=== PATIENT | male | born 1950 | race Caucasian/White ===

== ENCOUNTER → 2022-08-13 13:58 | Outpatient (BNVA) | payer MEDICARE, OTHER, SELFPAY | PROVIDERS: Visit Provider Neurological Surgery | DX: M54.12 Radiculopathy, cervical region (principal); M48.02 Spinal stenosis, cervical region | CPT/HCPCS: 99202 ==

== ENCOUNTER 2022-12-03 05:54 | Day surgery (SDC) | payer MEDICARE, OTHER, SELFPAY ==
[2022-11-19 13:44] VITALS: BMI 30.7
--- NOTE | 2022-12-02 08:40 | HO.ANESPROP2 ---
Documented by User: Aparna Park NP 12/02/22 08:50 HPI - Anesthesia Eval Consult details Narrative: 72yo M for Left C6 Laminectomy Decompression (Foraminotomy) Medically cleared Patient not seen in [facility] Active Problems Active Problems: All Active Problems (Updated 11/19/22 @ 13:33 by Akua Lomeli RN) Neuroforaminal stenosis of cervical spine (Acute) Cervical radiculopathy at C6 (Acute) Past Medical History Medical History Colon cancer Prostate cancer Type 2 diabetes mellitus HTN (hypertension) Peripheral neuropathy AAA (abdominal aortic aneurysm) Coronary arteriosclerosis Surgical History Surgical History Hx of fusion of cervical spine Hx of excision of mass History of colon resection H/O colonoscopy Social History Social History Are you a primary day care assistant to a significant other at home: No Do you presently have visiting nurse or other home services: No Patient Tobacco Use Status: Former Tobacco user Quit Date: age 32 Tobacco use type: Cigarette Use of substances other than those prescribed or required for medical reasons: No Have you been hit, kicked, punched, or otherwise hurt by someone within the past year? If so, by whom?: No Are you DNR?: No Advance Directives: No (states is primary contact) Advance Directives Information Provided: Yes (brochure mailed) Advance Directives on File: No Recently lost weight without trying: No Eating poorly because of decreased appetite: No Nutrition Risks: No Nutritional Risk Poor oral hygiene: No Meds Allergies Allergy/AdvReac Type Severity Reaction Status Date / Time No Known Allergies Allergy Verified 12/03/22 06:22 Home Medications Medication Instructions Recorded Confirmed Last Taken Type amlodipine 10 mg tablet 10 mg PO DAILY 11/19/22 11/19/22 12/03/22 05:00 History clonidine HCl 0.1 mg tablet 0.1 mg PO TID 11/19/22 11/19/22 12/03/22 05:00 History insulin glargine 100 unit/mL (3 10 unit subcut BEDTIME 11/19/22 11/19/22 Unknown History mL) subcutaneous pen (Lantus Solostar U-100 Insulin) labetalol 200 mg tablet 200 mg PO BID 11/19/22 11/19/22 12/03/22 05:00 History metformin 500 mg tablet 1,000 mg PO BID 11/19/22 11/19/22 Unknown History tamsulosin 0.4 mg capsule 0.4 mg PO DAILY 11/19/22 11/19/22 Unknown History Exam Exam Date and Time: December 02, 2022 0840 Height,Weight and Vital Signs: Height 6 ft 1 in Weight 105.687 kg Pertinent Lab Results Pertinent Lab Results: 09/2022 BMP BUN/Creat elevated A1C 8.5 CBC WNL Narrative Narrative: EKG 09/2022 SB @ 58 Nuc Stress 2021 1. Study negative for ischemia 2. Nml LV size with estimated EF 48% 3. Perfusion: No perfusion defects observed. 4. Wall motion: No abnormal wall motion observed. Assessment and Plan Assessment Anesthesia Assessment: Chart Reviewed Documented by User: Blanca Whaley MD 12/03/22 07:27 [facility] Past Medical History Medical History Colon cancer Prostate cancer Type 2 diabetes mellitus HTN (hypertension) Peripheral neuropathy AAA (abdominal aortic aneurysm) Coronary arteriosclerosis Family History Family history of problems with anesthesia: No Surgical History Surgical History Hx of fusion of cervical spine Hx of excision of mass History of colon resection H/O colonoscopy History of Problems with Anesthesia: No Social History Social History Are you a primary day care assistant to a significant other at home: No Do you presently have visiting nurse or other home services: No Patient Tobacco Use Status: Former Tobacco user Quit Date: age 32 Tobacco use type: Cigarette Use of substances other than those prescribed or required for medical reasons: No Have you been hit, kicked, punched, or otherwise hurt by someone within the past year? If so, by whom?: No Are you DNR?: No Advance Directives: No (states is primary contact) Advance Directives Information Provided: Yes (brochure mailed) Advance Directives on File: No Recently lost weight without trying: No Eating poorly because of decreased appetite: No Nutrition Risks: No Nutritional Risk Poor oral hygiene: No Meds Allergies Allergy/AdvReac Type Severity Reaction Status Date / Time No Known Allergies Allergy Verified 12/03/22 06:22 Home Medications Medication Instructions Recorded Confirmed Last Taken Type amlodipine 10 mg tablet 10 mg PO DAILY 11/19/22 11/19/22 12/03/22 05:00 History clonidine HCl 0.1 mg tablet 0.1 mg PO TID 11/19/22 11/19/22 12/03/22 05:00 History insulin glargine 100 unit/mL (3 10 unit subcut BEDTIME 11/19/22 11/19/22 Unknown History mL) subcutaneous pen (Lantus Solostar U-100 Insulin) labetalol 200 mg tablet 200 mg PO BID 11/19/22 11/19/22 12/03/22 05:00 History metformin 500 mg tablet 1,000 mg PO BID 11/19/22 11/19/22 Unknown History tamsulosin 0.4 mg capsule 0.4 mg PO DAILY 11/19/22 11/19/22 Unknown History Exam Airway Mallampati Class: III TM Dist: >3cm Neck ROM: Limited Heart: rrr Lungs: cta Assessment and Plan Assessment Anesthesia Assessment: Anesthesia Plan Discussed Final Anesthetic Review Family History of Problems with Anesthesia: No History of Problems with Anesthesia: No NPO: Yes ASA Class: III Final Preanesthetic Review: No Changes in Pt Med Stat, Meds/Allgs Chart Reviewed, Consent Obtained/Reviewed and Anes Risks/Benef Reviewed Patient Risk: Intermediate Procedure Risk: Intermediate Anesthetic Plan Anesthetic Plan: GA (left upper extremity weakness and tingling and numbness ) Disposition: Standard PACU
[2022-12-03] VITALS (10 sets, daily range): BP systolic 146–170; BP diastolic 56–85; PULSE 48–62; RESP 10–18; TEMP 36–36.2; O2SAT 95–100
--- NOTE | ~2022-12-03 | FL_ITS ---
EXAMINATION: XR FLUOROSCOPY WITH IMAGES CLINICAL INFORMATION: C6 laminectomy decompression, left. COMPARISON: None available. TECHNIQUE: Fluoroscopy Supervised By: Dr. Prashanth Pickard. Fluoroscopy Time: Less than 0.1 minute. Cumulative Dose: 1.12 mGy. DAP: 0.242 Gycm2. Images: 1. FINDINGS: Single lateral intraoperative image demonstrates anterior fusion hardware with plate and screws in the cervical spine. There is marker placement projecting over the posterior elements at the most inferior postsurgical level. FL/FL guidance in OR IMPRESSION: Fluoroscopy guidance for cervical spine surgery.
[2022-12-03] MEDS: methocarbamoL 750 MG TABLET PO (06:23)
[2022-12-03] MEDS: Gabapentin 300 MG CAPSULE PO (06:23)
[2022-12-03] MEDS: Lactated Ringers 1,000 ML 100 ML IVCONT (06:30)
[2022-12-03 06:41] LABS: Glucose, Whole Blood 148 mg/dL (60-115)
--- NOTE | 2022-12-03 07:03 | MHC.SHP ---
Pre-Procedural Eval Section A Date of Service: 12/03/22 Section B Chief Complaint: Radiculopathy, cervical region,Spinal stenosis, Allergies: Allergies Allergy/AdvReac Type Severity Reaction Status Date / Time No Known Allergies Allergy Verified 12/03/22 06:22 Review of Systems Sugical H&P ROS: Negative: Constitution, Cardiovascular, Respiratory, Neurological, Psychiatric, Hem-Onc, Allergic/Immunologic, Gastrointestinal, Genitourinary, Musculoskeletal, Integumentary, Endocrine and Eyes/Ears/Nose/Throat Exam Surgical H&P Exam: Not Evaluated: HEENT, Not Evaluated: Heart, Not Evaluated: Lungs, Not Evaluated: Extremities, Not Evaluated: Abdomen, Not Evaluated: Skin and Not Evaluated: Neurological Plan I have reviewed the history and physical and performed a pertinent physical examination on my patient. No changes have occurred unless specified. Plan remains the same. C6 laminectomy Time Spent With Patient Time: Total time managing care of this patient today __10__ minutes.
--- NOTE | 2022-12-03 09:12 | PM.DS ---
DS: Providers Provider Date of Service: 12/03/22 Primary care physician: Kirt Barcenas MD DS: Diagnosis Discharge Diagnosis (1) S/P laminectomy: Status: Acute DS: Summary Time Spent with Patient Time attestation: Total time managing care of this patient today ____ minutes. Discharge coordination time: Less than 30 minutes Quality: Safe Use of Opioids Does Pt have an Active Cancer Diagnosis on the Problem List?: No Quality: Stroke Does the patient have a stroke diagnosis?: No Physical Exam Vital Signs: Vital Signs: Last Vital Signs Temp 97.1 F 12/03/22 06:31 Pulse 48 L 12/03/22 06:31 Resp 16 12/03/22 06:31 BP 170/85 H 12/03/22 06:31 Pulse Ox 95 12/03/22 06:31 O2 Del Method Room Air 12/03/22 06:31 BMI result Body Mass Index 30.7 DS: Data Data Completed and Pending Labs on day of discharge: Laboratory Results - last 24 hr 12/03/22 12/03/22 06:36 07:20 POC Glucose 148 H Blood Type O Negative Antibody Screen NEGATIVE Discharge Plan Discharge Patient Disposition: Home, Self-Care Referrals: Kirt Barcenas MD [Primary Care Provider] - 1 Week Discharge Medications: New sulfamethoxazole-trimethoprim [Bactrim DS] 800-160 mg tablet 1 tab PO BID 2 Days Qty: 4 0RF oxycodone 5 mg tablet 5 mg PO Q6-8H PRN (Reason: moderate-severe pain) Qty: 20 0RF Rx Instructions: Partial Fill upon patient request. acetaminophen 500 mg tablet 1,000 mg PO Q8H PRN (Reason: mild-moderate pain) Qty: 42 0RF docusate sodium 100 mg capsule 100 mg PO BID PRN (Reason: constipation) Qty: 20 0RF Continued metformin 500 mg tablet 1,000 mg PO BID clonidine HCl 0.1 mg tablet 0.1 mg PO TID labetalol 200 mg tablet 200 mg PO BID tamsulosin 0.4 mg capsule 0.4 mg PO DAILY amlodipine 10 mg tablet 10 mg PO DAILY insulin glargine [Lantus Solostar U-100 Insulin] 100 unit/mL (3 mL) insulin pen 10 unit subcut BEDTIME Discharge Orders: Discharge Order (Routine); Ordered 12/03/22 Ordered By: Jose Luis Croft Diet: Advance to usual diet Activity on Discharge: As tolerated Activity Restrictions/Additional Instructions: After your spinal surgery we ask you to observe the following restrictions/guidelines: Activity: It is normal to feel some discomfort as you increase your activity, but that will improve with time. We ask you avoid heavy lifting or acitivities that cause pain. As a general rule, 8lbs is a safe limit for lifting right after surgery. Walk as much as you feel comfortable but not to exhaustion. You will feel extra tired the first few days after surgery. Stay well hydrated. It is OK to walk up and down stairs You may return to driving when you are off narcotics (such as vicodin, oxycodone, dilaudid, etc), and you are back to normal functional capacity. If you have any concerns please check with office before driving. Return to work is specific to each patient and each surgery, so please speak with your doctor/PA at first follow up. Please bring paperwork such as FMLA at that time if you need it filled out. Medications: We will give you a short supply of narcotics after surgery (usually one weeks worth). If you need more please call the office but do not use more than prescribed. You will need to give our office 48 hours notice if you need narcotics refilled and we do not fill narcotics on weekends or evenings. If you are on a narcotic, it is a good idea to take a stool softener such as colace or senna to avoid constipation If you take blood thinner such as aspirin, Plavix, Coumadin, Effient, Eliquis etc for conditions such as Afib, DVT, Pulmonary embolus, coronary disease, stents etc please speak with your surgeon about specific details as to when you can resume these medications. You can resume NSAIDs on post op day 1 (eg: Motrin, Naproxen, etc). Follow up: Please call the office, , after surgery to arrange a 3 week follow up for wound check. Wound Care: You may remove your dressing on the first day after surgery. You may leave open to air. Please do not remove the steri strips underneath. they will fall off on their own in one week. IT IS NORMAL FOR THE WOUND TO OOZE OR BE BLOODY FOR A FEW DAYS AFTER SURGERY. IF THIS HAPPENS JUST PLACE NEW DRESSING OVER IT TO AVOID STAINING CLOTHES. You may shower on post op day # 1 We ask that you do not let the water soak the wound. If it does get wet, just towel dry lightly. Please do not scrub your incision or place any type of chemical/ointment on the wound. No tub baths, pools or jacuzzis for one month. If you have any leaking or redness from your wound, or fevers, please call the office.
--- NOTE | 2022-12-03 09:14 | P.OP_ITS ---
Operative Note Operative Note Date of Service: 12/03/22 Narrative: Preoperative Diagnosis: cervical radiculopathy, left-sided Operation: C6 laminotomy and foraminotomy with microscope Consent Informed Consent was obtained for this operation. I have explained the nature, purpose and benefits of the operation. I have discussed the risks and benefit of the operation including possible complications or adverse events with patient/family. Alternative(s) were discussed with the patient with their relative benefits and risks as well as the consequences of not accepting the operation were included in obtaining consent. Surgeon: SHANEKA COLON MD, PHD Procedure Assisted By: GEOVANI Lynch Description of Procedure This 72 year-old male suffering from left-sided cervical radiculopathy due to left C6 foraminal stenosis.The patient was offered a decompression of those nerv e roots. The procedure complications were explained. The patient was consented. The patient was brought to the operating room and endotracheally intubated. The patient was turned in prone position on the gel rolls. Prep and drape was done followed by timeout. a midcervical incision was made. Dissection was carried down the midline to avoid blood loss. The paravertebral muscles were released to expose the C5-C6 lamina in preparation for the foraminotomy. The microscope was brought in. A small C5-C6 laminotomy was done. The origin of the C6 nerve was identified. The inferior articular process of C5 was drilled down after which with a 1. Kerrison a foraminotomy was done to decompress the nerve root. A nerve hook could be easily passed over the nerve root a sign of adequate decompression. The physician logging assistant performed hemostasis and closed incision. Dermabond was used to approximate incision. All sponge needle counts were correct. Patient was extubated and transported in stable is to recovery room. Anesthesia: General Estimated Blood Loss (ml): Minimal Duration of Surgery: Under 60 Minutes Postoperative Plan: Discharge to home
[2022-12-03] MEDS: oxyCODONE HCl Immed Release 5 MG TABLET PO (10:01)
== END 2022-12-03 11:46 | disposition home or self-care (01) ==
PROVIDERS: PCP Internal Medicine Geriatric Medicine; Visit Provider Neurological Surgery
PROC: (CPT 63045; principal; 2022-12-03 07:30)
DX: M54.12 Radiculopathy, cervical region (principal); M48.02 Spinal stenosis, cervical region; Z98.1 Arthrodesis status; R20.0 Anesthesia of skin; M54.2 Cervicalgia; C61 Malignant neoplasm of prostate; I10 Essential (primary) hypertension; I71.40 Abdominal aortic aneurysm, without rupture, unspecified; E11.9 Type 2 diabetes mellitus without complications; Z85.038 Personal history of other malignant neoplasm of large intestine; Z93.3 Colostomy status; Z87.891 Personal history of nicotine dependence; Z79.84 Long term (current) use of oral hypoglycemic drugs; Z79.899 Other long term (current) drug therapy
CPT/HCPCS: 63045; 82947; 86850; 86900; 86901; J0131; J0690; J1100; J1885; J2405

== ENCOUNTER → 2022-12-03 05:54 | Outpatient (BNV) | payer MEDICARE, OTHER, SELFPAY | PROVIDERS: PCP Internal Medicine Geriatric Medicine; Visit Provider Physician Assistant | DX: M54.12 Radiculopathy, cervical region (principal); M48.02 Spinal stenosis, cervical region; Z98.890 Other specified postprocedural states | CPT/HCPCS: 63045; 99499 ==